=== PATIENT | female | born 1990 | race African-American/Black ===

== ENCOUNTER 2023-09-23 13:29 | Emergency (ER) | payer OTHER ==
[2023-09-23] MEDS ORDERED: HYDROmorphone 0.5 MG/0.5 ML SYRINGE ONE ×2 (13:42→14:09)
[2023-09-23] MEDS ORDERED: Ondansetron PF 4 MG/2 ML Vial ONE (13:43)
[2023-09-23] MEDS ORDERED: PROPOFOL 20 ML ONE (14:24)
== END 2023-09-23 16:07 | disposition home or self-care (01) ==
LOC: EDSEX 13:29 → ERS 13:29
DX: S43.014A Anterior dislocation of right humerus, initial encounter (principal); X50.1XXA Overexertion from prolonged static or awkward postures, initial encounter; Y93.67 Activity, basketball
CPT/HCPCS: 96374; 96375; J1170; J2405; J2704